=== PATIENT | male | born 1975 | race Caucasian/White ===

== ENCOUNTER 2020-10-13 14:29 | Emergency (ER) | payer OTHER ==
[2020-10-13 15:18] LABS: BASOPHIL 0.3 % (0-2); EOSINOPHIL 2.4 % (0-5); HCT 48.3 % (42.0-52.0); HGB 15.7 g/dl (13.2-18.0); MCH 29.7 pg (25.0-31.0); MCHC 32.5 g/dL (32.0-36.0); MCV 91.5 fL (78.0-100.0); MONOCYTE 7.9 % (0-12); MPV 10.3 fL (6.0-9.5); NEUTROPHIL 58.9 % (41-80); NRBC 0; PLT 301 K/uL (150-400); RBC 5.28 M/uL (4.70-6.00); RDW 12.8 % (11.5-14.0); WBC 11.5 K/uL (4.0-10.5)
[2020-10-13 15:30] LABS: ALBUMIN 4.6 g/dL (3.4-5.0); BILIRUBIN - TOTAL 0.9 mg/dL (0.2-1.0); BUN/CREAT RATIO (CALC) 15.2 RATIO; CREATININE 1.12 mg/dL (0.67-1.17); POTASSIUM 3.7 mmol/L (3.5-5.1); TOTAL PROTEIN 7.6 g/dL (6.4-8.2)
[2020-10-13 15:34] LABS: LACTIC ACID 2.7 mmol/L (0.4-1.9)
[2020-10-13 16:31] LABS: BILIRUBIN NEGATIVE (NEGATIVE); BLOOD 1+ Ery/uL (NEGATIVE); CLARITY CLEAR (CLEAR); COLOR YELLOW (YELLOW); GLUCOSE (U) NORMAL (NORMAL); LEUKOCYTES NEGATIVE Leu/uL (NEGATIVE); NITRITE NEGATIVE (NEGATIVE); PROTEIN TRACE (LOW) mg/dL (NEGATIVE); SPECIFIC GRAVITY >=1.030 (1.001-1.030); UROBILINOGEN 0.2 mg/dL (0.2-1.0); pH 5.5 (5.0-9.0)
[2020-10-13 16:39] LABS: BACTERIA TRACE; SQUAMOUS EPITHELIAL CELLS RARE; TYROSINE CRYSTALS TRACE
[2020-10-13] MEDS ORDERED: FLOMAX 0.4 MG0.4 MG PO (19:01)
[2020-10-13] MEDS ORDERED: ZOFRAN4 M1 PO (19:01)
[2020-10-13] MEDS ORDERED: PERCOCET 5-3251 EACH PO (19:01)
[2020-10-16 22:09] LABS: CHLAMYDIA TRACHOMATIS, NAA Negative (Negative); NEISSERIA GONORRHOEAE, NAA Negative (Negative)
== END 2020-10-13 19:25 | disposition home or self-care (01) ==
LOC: FER 14:29
PROVIDERS: Emergency Medicine; Nurse Practitioner Family
DX: N13.2 Hydronephrosis with renal and ureteral calculous obstruction (principal); R63.0 Anorexia; Z88.0 Allergy status to penicillin
CPT/HCPCS: 36415; 80053; 81001; 83605; 83690; 85025; 87491; 87591; J1170; J1885; J2405; J7030

== ENCOUNTER → 2022-07-02 | Day surgery (SDC) | payer OTHER ==
[~2022-07-02] VITALS: Ht 172.7 cm; Wt 74.8 kg
[~2022-07-02] MED LIST: FLOMAX 0.4 MG0.4 MG PO; PERCOCET 5-3251 EACH PO; ZOFRAN4 M1 PO
[2022-07-02 08:41] LABS: HCT 45.5 % (42.0-52.0); HGB 15.3 g/dl (13.2-18.0); MCH 30.2 pg (25.0-31.0); MCHC 33.6 g/dL (32.0-36.0); MCV 89.9 fL (78.0-100.0); MPV 9.8 fL (6.0-9.5); RBC 5.06 M/uL (4.70-6.00); RDW 12.8 % (11.5-14.0); WBC 6.7 K/uL (4.0-10.5)
[2022-07-02 09:18] LABS: ALBUMIN 3.9 g/dL (3.4-5.0); BILIRUBIN - TOTAL 0.8 mg/dL (0.2-1.0); BUN/CREAT RATIO (CALC) 15.5 RATIO; CREATININE 0.84 mg/dL (0.67-1.17); GLOBULIN (CALCULATION) 3.2 g/dL; TOTAL PROTEIN 7.1 g/dL (6.4-8.2)
== END | disposition home or self-care (01) ==
LOC: FAS 08:01
PROVIDERS: Surgery
DX: K62.5 Hemorrhage of anus and rectum (principal); K64.8 Other hemorrhoids; K58.9 Irritable bowel syndrome, unspecified; Z80.0 Family history of malignant neoplasm of digestive organs; Z88.0 Allergy status to penicillin
CPT/HCPCS: 36415; 80053; J2250; J2704; J7120